=== PATIENT | female | born 1985 | race African-American/Black ===

== ENCOUNTER 2017-04-16 08:22 | Emergency (ER) | payer MEDICAID ==
[2017-04-16 09:00] LABS: Bilirubin Negative (Negative); Blood, Urine Negative (Negative); Glucose, Urine (Dipstick) Negative (Negative); Ketone, Urine Negative (Negative); Nitrite Negative (Negative); Protein, Urine (Dipstick) Negative (Neg-Trace); Urobilinogen 0.2 mg/dL (0.2-1.0)
== END 2017-04-16 10:20 | disposition home or self-care (01) ==
LOC: ERS 08:22
DX: R10.30 Lower abdominal pain, unspecified (principal); J45.909 Unspecified asthma, uncomplicated; E03.9 Hypothyroidism, unspecified; F31.9 Bipolar disorder, unspecified; F41.9 Anxiety disorder, unspecified; Z79.899 Other long term (current) drug therapy
CPT/HCPCS: 81003; 81025; 99284; J7620

== ENCOUNTER 2017-07-18 16:10 | Emergency (ER) | payer MEDICAID | END 2017-07-18 16:55 | disposition home or self-care (01) | LOC: ERS 16:10 | DX: F32.9 Major depressive disorder, single episode, unspecified (principal); E03.9 Hypothyroidism, unspecified; J45.909 Unspecified asthma, uncomplicated; F41.9 Anxiety disorder, unspecified; F17.210 Nicotine dependence, cigarettes, uncomplicated; Z79.899 Other long term (current) drug therapy | CPT/HCPCS: 99283 ==

== ENCOUNTER 2018-10-19 21:36 | Emergency (ER) | payer MEDICAID, OTHER | END 2018-10-19 22:01 | disposition home or self-care (01) | LOC: ERS 21:36 | DX: F19.10 Other psychoactive substance abuse, uncomplicated (principal); J45.909 Unspecified asthma, uncomplicated; F17.210 Nicotine dependence, cigarettes, uncomplicated; F41.9 Anxiety disorder, unspecified; F31.9 Bipolar disorder, unspecified; Z79.899 Other long term (current) drug therapy | CPT/HCPCS: 99282 ==

== ENCOUNTER 2019-03-29 15:37 | Emergency (ER) | payer OTHER ==
[2019-03-29 17:08] LABS: #Basophils 0.1 thou/uL (0.0-0.2); #Eosinphils 0.3 thou/uL (0.0-0.7); #Lymphocytes 1.8 thou/uL (1.20-3.40); #Monocytes 0.5 thou/uL (0.11-0.59); #Neutrophils 5.3 thou/uL (1.40-6.50); %Basophils 1.2 % (0.0-1.0); %Eosinophils 3.6 % (0.0-10.0); %Lymphocytes 22.2 % (21.0-51.0); %Monocytes 5.9 % (0.0-10.0); %Neutrophils 67.1 % (42.0-75.0); Hemoglobin 13.6 g/dL (12.0-16.0); Mean Corpuscular HGB CONC 33.6 g/dL (32.0-36.0); Mean Corpuscular Hemoglobin 33.9 pg (27.0-31.0); Mean Platelet Volume 8.4 fL (7.4-10.4); Platelet Count 262 thou/uL (130-400); RBC Distribution Width 11.8 % (11.5-14.5); Red Blood Cell (RBC) Count 4.01 mill/uL (4.20-5.40); White Blood Cell (WBC) Count 7.9 thou/uL (4.8-10.8)
[2019-03-29 17:31] LABS: ALT (SGPT) 16 U/L (8-55); AST (SGOT) 18 U/L (5-34); Acetaminophen Less than 6.0 mcg/mL (10.0-30.0); Albumin 4.1 g/dL (3.5-5.0); Alcohol Less than 10 mg/dL (Less than 10); Alkaline Phosphatase 72 U/L (40-150); Anion Gap 13 mmol/L (10-20); BUN (Urea Nitrogen) 12 mg/dL (7.0-18.7); Bilirubin, Total 0.7 mg/dL (0.2-1.2); CK (CPK) 123 U/L (29-168); Calc. Creatinine Clearance 0 mL/min (70-130); Calcium 9.7 mg/dL (7.8-10.44); Carbon Dioxide 30 mmol/L (22-29); Chloride 97 mmol/L (98-107); Estimated GFR-MDRD Greater than 90; Globulin 3.1 g/dL (2.4-3.5); Glucose 123 mg/dL (70-105); Protein, Total 7.2 g/dL (6.0-8.3); Salicylate Less than 8.0 mg/dL (15.0-30.0); Sodium 137 mmol/L (136-145)
[2019-03-29 17:35] LABS: Potassium 2.7 mmol/L (3.5-5.1)
[2019-03-29] MEDS ORDERED: Potassium Chloride 20 MEQ TAB ONE (18:08)
--- NOTE | 2019-04-03 15:20 | EKG ---
Test Reason : Blood Pressure : / mmHG Vent. Rate : 088 BPM Atrial Rate : 088 BPM P-R Int : 128 ms QRS Dur : 086 ms QT Int : 392 ms P-R-T Axes : 073 070 037 degrees QTc Int : 474 ms Normal sinus rhythm Minimal voltage criteria for LVH, may be normal variant Borderline ECG Confirmed by VASYL RUBIN, ANNI ([id number]), news copy editor YOLANDA WELLS ([id number]) on 04/03/2019 3:20:41 PM Referred By: Confirmed By:ANNI FALLON MD
== END 2019-03-29 18:17 | disposition left against medical advice (07) ==
LOC: ERS 15:37
DX: R41.82 Altered mental status, unspecified (principal); E03.9 Hypothyroidism, unspecified; J45.909 Unspecified asthma, uncomplicated; F41.9 Anxiety disorder, unspecified; F32.9 Major depressive disorder, single episode, unspecified; F17.210 Nicotine dependence, cigarettes, uncomplicated; Z79.899 Other long term (current) drug therapy
CPT/HCPCS: 36415; 80053; 80307; 82550; 84443; 85025; 93005

== ENCOUNTER 2019-06-15 01:09 | Emergency (ER) | payer OTHER | END 2019-06-15 01:54 | LOC: ERS 01:09 | DX: Z02.89 Encounter for other administrative examinations (principal); J45.909 Unspecified asthma, uncomplicated; F31.9 Bipolar disorder, unspecified; F17.210 Nicotine dependence, cigarettes, uncomplicated; Z79.899 Other long term (current) drug therapy | CPT/HCPCS: 99283 ==

== ENCOUNTER 2021-05-20 12:26 | Emergency (ER) | payer OTHER ==
[2021-05-20] MEDS ORDERED: Ibuprofen 800 MG TAB ONE (13:35)
== END 2021-05-20 13:50 | disposition home or self-care (01) ==
LOC: EEVIPCON 12:26 → ERS 12:26
DX: L73.2 Hidradenitis suppurativa (principal); E03.9 Hypothyroidism, unspecified; J45.909 Unspecified asthma, uncomplicated; F17.210 Nicotine dependence, cigarettes, uncomplicated; Z79.899 Other long term (current) drug therapy
CPT/HCPCS: 99282

== ENCOUNTER 2021-10-24 00:02 | Emergency (ER) | payer OTHER, SELFPAY ==
[2021-10-24] MEDS ORDERED: Haloperidol Lactate 5 MG/ML VIAL ONE (00:42)
[2021-10-24 02:28] LABS: #Eosinphils 0.2 thou/uL (0.0-0.7); #Lymphocytes 2.1 thou/uL (1.20-3.40); #Neutrophils 7.5 thou/uL (1.40-6.50); %Basophils 0.5 % (0.0-1.0); %Eosinophils 1.5 % (0.0-10.0); %Lymphocytes 19.1 % (21.0-51.0); %Monocytes 9.4 % (0.0-10.0); %Neutrophils 69.4 % (42.0-75.0); Hemoglobin 12.7 g/dL (12.0-16.0); Mean Corpuscular HGB CONC 33.8 g/dL (32.0-36.0); Mean Corpuscular Hemoglobin 34.1 pg (27.0-31.0); Mean Platelet Volume 7.5 fL (7.4-10.4); Platelet Count 304 thou/uL (130-400); RBC Distribution Width 12.1 % (11.5-14.5); Red Blood Cell (RBC) Count 3.71 mill/uL (4.20-5.40); White Blood Cell (WBC) Count 10.8 thou/uL (4.8-10.8)
[2021-10-24 02:52] LABS: ALT (SGPT) 40 U/L (8-55); AST (SGOT) 59 U/L (5-34); Acetaminophen Less than 10.0 mcg/mL (10.0-30.0); Albumin 4.1 g/dL (3.5-5.0); Alcohol Less than 10 mg/dL (Less than 10); Alkaline Phosphatase 127 U/L (40-110); Anion Gap 15 mmol/L (10-20); BUN (Urea Nitrogen) 8 mg/dL (7.0-18.7); Bilirubin, Total 0.3 mg/dL (0.2-1.2); CK (CPK) 2251 U/L (29-168); Calc. Creatinine Clearance 0 mL/min (70-130); Calcium 9.4 mg/dL (7.8-10.44); Carbon Dioxide 29 mmol/L (22-29); Chloride 97 mmol/L (98-107); Globulin 4.1 g/dL (2.4-3.5); Glucose 144 mg/dL (70-105); Protein, Total 8.2 g/dL (6.0-8.3); Salicylate Less than 8.0 mg/dL (15.0-30.0); Sodium 139 mmol/L (136-145)
[2021-10-24 02:56] LABS: Potassium 2.4 mmol/L (3.5-5.1)
[2021-10-24] MEDS ORDERED: Potassium Bicarbonate/Cit Ac 25 MEQ TAB PO SCH (04:00)
[2021-10-24 06:47] LABS: Pregnancy Test - Urine (BHCG) Negative (Negative); Pregu Control Background? CLEAR/WHITE (CLR/WHITE); Pregu Control Bar Appear? YES (CONTROL BAR); Specific Gravity 1.031 (1.002-1.036)
[2021-10-24 06:49] LABS: Bacteria/HPF None Seen HPF (None Seen); Bilirubin Negative (Negative); Blood, Urine Negative (Negative); Clarity Turbid (Clear); Glucose, Urine (Dipstick) Normal (Negative); Ketone, Urine Negative (Negative); Leukocyte Negative Leu/uL (Negative); Mucous/LPF 4+ LPF (<2+); Nitrite Negative (Negative); Protein, Urine (Dipstick) 50 mg/dL (Neg-Trace); RBC/HPF 0-3 HPF (0-3); Specific Gravity, Urine 1.031 (1.002-1.036); Urobilinogen Normal mg/dL (Less than 2); WBC/HPF 0-3 HPF (0-3)
[2021-10-24 06:55] LABS: Amphetamine Detected (NotDetected); Barbiturates Screen Not Detected (NotDetected); Benzodiazepine Screen Not Detected (NotDetected); Cocaine Metabolite Screen Detected (NotDetected); Methadone Not Detected (NotDetected); Methamphetamine Detected (NotDetected); Opiate Screen Not Detected (NotDetected); Oxycodone Screen Not Detected (NotDetected); Phencyclidine (PCP) Detected (NotDetected); THC/Cannabinoid Screen Not Detected (NotDetected); Tricyclic Screen Not Detected (NotDetected)
[2021-10-24 11:42] LABS: Anion Gap 14 mmol/L (10-20); BUN (Urea Nitrogen) 7 mg/dL (7.0-18.7); CK (CPK) 1780 U/L (29-168); Calc. Creatinine Clearance 0 mL/min (70-130); Calcium 9.1 mg/dL (7.8-10.44); Carbon Dioxide 29 mmol/L (22-29); Chloride 98 mmol/L (98-107); Glucose 127 mg/dL (70-105); Sodium 138 mmol/L (136-145)
[2021-10-24 11:50] LABS: Potassium 2.8 mmol/L (3.5-5.1)
[2021-10-24] MEDS ORDERED: Potassium Chloride 20 MEQ TAB ONE (13:03)
[2021-10-24] MEDS ORDERED: Acetaminophen 500 MG TAB ONE (13:03)
== END 2021-10-24 18:00 | disposition home or self-care (01) ==
LOC: ERS 00:02
DX: F32.A Depression, unspecified (principal); F19.10 Other psychoactive substance abuse, uncomplicated; E03.9 Hypothyroidism, unspecified; J45.909 Unspecified asthma, uncomplicated; F17.210 Nicotine dependence, cigarettes, uncomplicated; Z79.899 Other long term (current) drug therapy
CPT/HCPCS: 36415; 80053; 80306; 80307; 81003; 81015; 81025; 82550; 84443; 85025; 93005; 96372; J1630

== ENCOUNTER 2021-11-30 12:51 | Emergency (ER) | payer SELFPAY ==
[2021-11-30] MEDS ORDERED: Ibuprofen 200 MG TAB ONE (13:41)
== END 2021-11-30 13:54 ==
LOC: ERS 12:51
DX: S82.852A Displaced trimalleolar fracture of left lower leg, initial encounter for closed fracture (principal); E03.9 Hypothyroidism, unspecified; J45.909 Unspecified asthma, uncomplicated; F17.210 Nicotine dependence, cigarettes, uncomplicated

== ENCOUNTER 2022-04-27 12:39 | Emergency (ER) | payer OTHER, SELFPAY | END 2022-04-27 12:52 | LOC: ERS 12:39 | DX: T40.991A Poisoning by other psychodysleptics [hallucinogens], accidental (unintentional), initial encounter (principal); F16.10 Hallucinogen abuse, uncomplicated | CPT/HCPCS: 99284 ==

== ENCOUNTER 2022-05-16 23:42 | Emergency (ER) | payer SELFPAY | END 2022-05-16 23:59 | LOC: ERS 23:42 | DX: Z02.79 Encounter for issue of other medical certificate (principal) | CPT/HCPCS: 99281 ==

== ENCOUNTER 2022-07-18 20:27 | Emergency (ER) | payer SELFPAY | END 2022-07-18 21:51 | disposition home or self-care (01) | LOC: ERS 20:27 | DX: F19.10 Other psychoactive substance abuse, uncomplicated (principal) | CPT/HCPCS: 99284 ==

== ENCOUNTER 2022-09-24 15:38 | Emergency (ER) | payer SELFPAY ==
[2022-09-24 16:46] LABS: #Eosinphils 0.5 thou/uL (0.0-0.7); #Lymphocytes 1.5 thou/uL (1.20-3.40); #Monocytes 0.6 thou/uL (0.11-0.59); %Basophils 0.6 % (0.0-1.0); %Eosinophils 5.5 % (0.0-10.0); %Lymphocytes 17.1 % (21.0-51.0); %Monocytes 7.5 % (0.0-10.0); %Neutrophils 69.4 % (42.0-75.0); Mean Corpuscular Hemoglobin 33.3 pg (27.0-31.0); Mean Platelet Volume 8.5 fL (7.4-10.4); Platelet Count 264 10x3/uL (130-400); RBC Distribution Width 11.8 % (11.5-14.5); Red Blood Cell (RBC) Count 4.19 mill/uL (4.20-5.40); White Blood Cell (WBC) Count 8.6 10x3/uL (4.8-10.8)
[2022-09-24 16:52] LABS: BHCG - Serum Negative (NEGATIVE); Pregs Control Background? CLEAR/WHITE (CLR/WHITE); Pregs Control Bar Appear? YES (CONTROL BAR)
[2022-09-24 17:06] LABS: ALT (SGPT) 18 U/L (8-55); AST (SGOT) 27 U/L (5-34); Acetaminophen Less than 10.0 mcg/mL (10.0-30.0); Albumin 4.2 g/dL (3.5-5.0); Alcohol 30 mg/dL (Less than 10); Alkaline Phosphatase 102 U/L (40-110); Anion Gap 15 mmol/L (10-20); BUN (Urea Nitrogen) 8 mg/dL (7.0-18.7); Bilirubin, Total 0.4 mg/dL (0.2-1.2); CK (CPK) 124 U/L (29-168); Calc. Creatinine Clearance 0 mL/min (70-130); Calcium 9.3 mg/dL (7.8-10.44); Carbon Dioxide 25 mmol/L (22-29); Chloride 100 mmol/L (98-107); Estimated GFR 102; Globulin 3.7 g/dL (2.4-3.5); Glucose 83 mg/dL (70-105); Potassium 2.7 mmol/L (3.5-5.1); Protein, Total 7.9 g/dL (6.0-8.3); Salicylate Less than 8.0 mg/dL (15.0-30.0); Sodium 137 mmol/L (136-145)
[2022-09-24] MEDS ORDERED: Proparacaine 0.5% Opth 15 ML BOT ONE (17:40)
[2022-09-24] MEDS ORDERED: Fluorescein Opthalmic Strip ONE (17:40)
[2022-09-24 17:49] LABS: Amphetamine Detected (NotDetected); Barbiturates Screen Not Detected (NotDetected); Benzodiazepine Screen Not Detected (NotDetected); Cocaine Metabolite Screen Detected (NotDetected); Methadone Not Detected (NotDetected); Methamphetamine Detected (NotDetected); Opiate Screen Not Detected (NotDetected); Oxycodone Screen Not Detected (NotDetected); Phencyclidine (PCP) Detected (NotDetected); THC/Cannabinoid Screen Not Detected (NotDetected); Tricyclic Screen Not Detected (NotDetected)
[2022-09-24] MEDS ORDERED: Potassium Chloride 20 MEQ TAB ONE (18:06)
[2022-09-24] MEDS ORDERED: Magnesium 2 GM/50 ML BAG (IN WATER) ONE (18:06)
[2022-09-24] MEDS ORDERED: Ciprofloxacin 0.3% Ophth Soln 2.5 ml Bottle R EYE SCH (18:15)
== END 2022-09-24 18:39 ==
LOC: ERS 15:38
DX: F19.10 Other psychoactive substance abuse, uncomplicated (principal); E87.6 Hypokalemia; H16.001 Unspecified corneal ulcer, right eye
CPT/HCPCS: 80053; 80306; 80307; 82550; 83735; 84703; 85025; 93005; 96374; J3475

== ENCOUNTER 2022-09-29 15:12 | Emergency (ER) | payer SELFPAY | END 2022-09-29 16:11 | LOC: ERS 15:12 | DX: Z02.89 Encounter for other administrative examinations (principal) | CPT/HCPCS: 74018 ==